=== PATIENT | female | born 1955 | race Caucasian/White ===

== ENCOUNTER 2019-03-06 04:31 | Inpatient (IN) ==
[2019-03-06] MEDS ORDERED: ASPIRIN PO ONE (04:50)
--- NOTE | 2019-03-06 04:55 | PROVIDER DOCUMENTATION ---
HPI-Chest Pain - General Chief Complaint: Chest Pain Stated Complaint: "HEART ATTACK" Time Seen by Provider: 03/06/19 04:33 Allergies/Adverse Reactions: Patient Allergies Allergy/AdvReac Type Severity Reaction Status Date / Time codeine Allergy ITCHING Verified 03/26/18 03:04 Home Medications: Home Medication List Medication Instructions Recorded Confirmed Last Taken Type Duloxetine [Cymbalta] 60 mg PO DAILY 07/30/13 03/06/19 09/18/17 09:00 History Tizanidine HCl [Zanaflex] 8 mg PO HS 12/09/15 03/06/19 09/19/17 02:00 History Ergocalciferol (Vitamin D2) 50,000 unit PO Q7D 09/19/17 03/06/19 10/30/17 History [Vitamin D2] Levothyroxine [Synthroid] 25 microgm PO DAILY@0700 09/19/17 03/06/19 09/18/17 09:00 History Alprazolam 1 mg PO BID 11/02/17 03/06/19 Unknown History Metformin [Glucophage] 500 mg PO TID CC 11/02/17 03/06/19 Unknown History - History of Present Illness-CP Nature of Presenting Problem: Patient is a 63 year old white female with history of orthostatic hypotension, chronic lower back pain, hypothyroidism, and depression who presents with 3/10 sharp bilateral neck pain and substernal chest pain- onset 30 minutes ago after getting up from sleep. Denies history of CAD. Followed by doctor in [place]. Review of Systems - Adult - REVIEW OF SYSTEMS - ADULT Constitutional: denies: chills, fever Eyes: reports: no symptoms reported Ears, Nose, Mouth & Throat: reports: no symptoms reported Cardiovascular: reports: chest pain Respiratory: denies: shortness of breath Gastrointestinal: denies: abdominal pain, hematemesis, rectal bleeding Genitourinary: denies: dysuria Musculoskeletal: reports: see HPI, back pain (chronic lower back pain) Integumentary: denies: rash Neurological: reports: no symptoms reported Psychiatric: reports: anxiety, depression Hematologic/Lymphatic: reports: no symptoms reported Allergic/Immunologic: reports: no symptoms reported All Other Systems: Reviewed and Negative Past History - Adult - PAST MEDICAL HISTORY-ADULT Review of Records: reports: Nursing Assessment Review Major Childhood Illnesses: reports: denies history Cardiovascular: reports: denies history Respiratory: reports: denies history Gastrointestinal: reports: denies history Obstetrical/Gynecological: reports: denies history Genitourinary: reports: denies history Musculoskeletal: reports: arthritis, fibromyalgia Neurological: reports: headaches/migraines Endocrine/Immune: reports: Diabetes, thyroid disorder Other Conditions: reports: denies history - PRIOR SURGERIES/PROCEDURES Surgical/Procedure History: reports: reviewed, not pertinent, appendectomy, cholecystectomy, hysterectomy, BTL - IMMUNIZATION STATUS Childhood Immunizations: See Nurse Assessment Flu Vaccine: See Nurse Assessment - FAMILY HISTORY Family History: reviewed, not pertinent Physical Exam-General - CONSTITUTIONAL General Appearance: alert, other (appears pale with generalized weakness) - EYES Eyes: other (clear) - HEAD, EARS, NOSE, MOUTH & THROAT HENMT: normocephalic/atraumatic, moist mucous membranes - NECK Neck: non-tender, full range of motion, supple - RESPIRATORY Respiratory: lungs clear - CARDIOVASCULAR Cardiovascular: regular rate, rhythm - GASTROINTESTINAL (ABDOMEN) Abdominal Exam: normal bowel sounds, non tender, soft - MUSCULOSKELETAL Back Exam: normal inspection, no CVA tenderness Extremity: normal range of motion, non-tender - SKIN Integumentary: warm - NEUROLOGIC Neurologic: grossly normal - PSYCHIATRIC Psych/Mental Status: oriented x 3, anxious Progress - PLAN OF CARE/RESULTS Progress/Plan/Lab Results: Vital Signs - 8 hr 03/06/19 04:33 03/06/19 04:43 03/06/19 04:51 Temperature 97.6 F Pulse Rate 71 57 L 55 L Respiratory Rate 18 17 15 Blood Pressure 68/45 92/61 110/57 O2 Sat by Pulse Oximetry 96 93 L 03/06/19 05:00 03/06/19 05:03 03/06/19 05:15 Temperature Pulse Rate 67 58 L 55 L Respiratory Rate 14 19 16 Blood Pressure 59/36 89/48 86/49 O2 Sat by Pulse Oximetry 96 94 L 95 03/06/19 05:29 03/06/19 05:45 Temperature Pulse Rate 61 57 L Respiratory Rate 14 16 Blood Pressure 89/49 84/44 O2 Sat by Pulse Oximetry 99 99 Laboratory Results - last 24 hr 03/06/19 03/06/19 03/06/19 04:47 04:55 04:55 WBC 11.33 H RBC 3.88 L Hgb 11.0 L Hct 34.9 L MCV 89.9 MCH 28.4 MCHC 31.5 L RDW Std Deviation 13.4 Plt Count 301 MPV 12.3 H Immature Gran % (Auto) 0.3 Neut % (Auto) 59.4 Lymph % (Auto) 24.4 Kleberg % (Auto) 7.4 Eos % (Auto) 6.7 Baso % (Auto) 1.8 H Immature Gran # (Auto) 0.03 Neut # (Auto) 6.74 H Lymph # (Auto) 2.76 Kleberg # (Auto) 0.84 H Eos # (Auto) 0.76 H Baso # (Auto) 0.20 D-Dimer, Quantitative 0.81 H Sodium Potassium Chloride Carbon Dioxide Anion Gap BUN Creatinine Estimated GFR/1.73 m2 BUN/Creatinine Ratio Glucose POC Glucose 223 H Calculated Osmolality Calcium Total Bilirubin AST ALT Alkaline Phosphatase Ziz-I-Oyssxkzgrjz Pept Total Protein Albumin Globulin Albumin/Globulin Ratio 03/06/19 03/06/19 04:55 04:55 WBC RBC Hgb Hct MCV MCH MCHC RDW Std Deviation Plt Count MPV Immature Gran % (Auto) Neut % (Auto) Lymph % (Auto) Kleberg % (Auto) Eos % (Auto) Baso % (Auto) Immature Gran # (Auto) Neut # (Auto) Lymph # (Auto) Kleberg # (Auto) Eos # (Auto) Baso # (Auto) D-Dimer, Quantitative Sodium 140 Potassium 4.0 Chloride 105 Carbon Dioxide 18 L Anion Gap 18 BUN 26 H Creatinine 1.5 H Estimated GFR/1.73 m2 35 BUN/Creatinine Ratio 17 Glucose 257 H POC Glucose Calculated Osmolality 293 Calcium 8.9 Total Bilirubin 0.30 AST 18 ALT 10 Alkaline Phosphatase 158 H Hoj-Y-Trboscgkagt Pept 357 H Total Protein 7.3 Albumin 4.2 Globulin 3.0 Albumin/Globulin Ratio 1.0 Orders Category Date Time Status Cardiac Monitoring DIRECTED Care 03/06/19 04:49 Active Misc. NRSG Communication Order DIRECTED Care 03/06/19 06:01 Active Saline Loc NOW Care 03/06/19 04:51 Active CHEST-PORTABLE [RAD] Stat Exams 03/06/19 04:50 Taken LUNG SCAN / VQ [NM] Stat Exams 03/06/19 05:54 Ordered BLOOD CULTURE [BLDCUL] Stat Lab 03/06/19 05:57 Uncollected BNP [PRO B-NATRIURETIC PEPTIDE] Stat Lab 03/06/19 04:55 Completed CBC WITH ELECTRONIC DIFF [HEME] Stat Lab 03/06/19 04:55 Completed CMP [COMPREHENSIVE METABOLIC PANEL] [CHEM] Stat Lab 03/06/19 04:55 Completed D-DIMER [COAG] Stat Lab 03/06/19 04:55 Completed OCCULT BLOOD SCREEN STOOL PL Stat Lab 03/06/19 06:02 Uncollected TROPONIN T HIGH SENSITIVITY Stat Lab 03/06/19 04:55 Received 0.9% Sodium Chloride Inj [Ns] 1,000 ml Med 03/06/19 05:09 Discontinued IV 999 mls/hr Aspirin Med 03/06/19 04:50 Discontinued 324 mg PO NOW ONE Hydrocortisone Sod Succinate [Solu-Cortef] Med 03/06/19 05:56 Discontinued 100 mg IV NOW ONE Oxygen Device Stat Oth 03/06/19 05:08 Active EKG [EKG] Stat Ther 03/06/19 04:37 Draft Result Diagrams: 03/06/19 04:55 03/06/19 04:55 - CONSULTS/PCP/HOSPITALIST Notification #1 *Consult/PCP/Hospitalist*: Dr Proctor Time Discussed: 08:22 Consult Disposition: Will see in ED, Admit - CHANGE OF SHIFT REPORT (ED Provider) 1 Report Given and Care Transferred to:: Dr. HENSON Time of Transfer: 07:00 Items Pending: Labs, Other (VQ scan, repeat cardiac enzymes) Departure - Departure Date of Disposition Decision: 03/06/19 Time of Disposition Decision: 08:21 DIAGNOSIS: Chest pain, Elevated d-dimer, UTI (urinary tract infection) Hypotension Qualifiers: Hypotension type: unspecified hypotension type Qualified Code(s): I95.9 - Hypotension, unspecified Disposition: ADMITTED INPATIENT 09 Certified Medical Emergency: Emergent Condition: Stable Referrals and Follow-Ups: None,PCP [NON-STAFF PROVIDER] - - Critical Care Note This patient required my direct & personal management of CC.: No Attestation - Physician/ NEENA Attestation Patient care was provided by Advanced Practice Provider:: No The physician spent face to face time with patient:: Yes Advanced Practice Provider documentation review:: Supervising physician onsite and consulted in the evaluation and care of this patient. The physician did have a face to face encounter with the patient.
[2019-03-06 05:06] LABS: BASO% 1.8 % (0.0-0.8); EOS# 0.76 X1000 (0.0-0.7); EOS% 6.7 % (0.0-10.0); HEMATOCRIT 34.9 % (37.0-47.0); IMM GRAN# 0.03 X1000 (0.0-0.04); IMM GRAN% 0.3 % (0.0-0.5); LYMPH# 2.76 X1000 (1.2-3.4); LYMPH% 24.4 % (20.5-51.1); MCH 28.4 PG (27-31); MCHC 31.5 g/dL (33-37); MCV 89.9 FL (81-99); MONO# 0.84 X1000 (0.11-0.59); MONO% 7.4 % (1.7-9.3); MPV 12.3 FL (7.4-10.4); NEUT# 6.74 X1000 (1.4-6.5); NEUT% 59.4 % (42.2-75.2); PLT 301 X1000 (130-400); RBC 3.88 XMIL (4.2-5.4); RDW 13.4 % (11.5-14.5); WBC 11.33 X1000 (4.8-10.8)
[2019-03-06] MEDS ORDERED: NS 1,000 ML IV ONE (05:09)
[2019-03-06 05:21] LABS: ALBUMIN 4.2 g/dL (3.5-5.0); CALCIUM 8.9 mg/dL (8.8-10.2); CREATININE 1.5 mg/dL (0.5-0.9); TOTAL BILIRUBIN 0.3 mg/dL (0.20-1.00); TOTAL PROTEIN 7.3 g/dL (6.3-8.3)
[2019-03-06] MEDS ORDERED: SOLU-CORTEF IV ONE (05:56)
--- NOTE | 2019-03-06 06:04 | EKG Report ---
Test Performed on : 03/06/2019 04:45:24 AM Test Reason : CP Blood Pressure : / mmHG Vent. Rate : 059 BPM Atrial Rate : 059 BPM P-R Int : 160 ms QRS Dur : 072 ms QT Int : 418 ms P-R-T Axes : 029 065 072 degrees QTc Int : 413 ms Sinus bradycardia. Otherwise normal ECG When compared with ECG of 02-NOV-2017 14:19, Vent. rate has decreased BY 30 BPM Unconfirmed Result
[2019-03-06 07:09] LABS: BILIRUBIN URINE NEGATIVE (NEGATIVE); BLOOD URINE NEGATIVE (NEGATIVE); COLOR YELLOW; GLUCOSE URINE NEGATIVE (NEGATIVE); KETONE URINE NEGATIVE (NEGATIVE); LEUKOCYTES URINE LARGE (NEGATIVE); NITRITE URINE NEGATIVE (NEGATIVE); PROTEIN URINE TRACE mg/dL (NEGATIVE); SP GRAVITY URINE 1.016; TURBIDITY URINE HAZY (CLEAR); UR EPITHELIAL CELLS <10 /HPF (<10); URINE BACTERIA 4+ /HPF; URINE RBC <10 /HPF (<10); URINE SOURCE CLEAN CATCH; URINE WBC TNTC /HPF (<10); UROBILINOGEN URINE 2 mg/dL (NORMAL)
--- NOTE | 2019-03-06 07:41 | Diag Imaging Result Doc PS360 ---
CHEST-PORTABLE - 03/06/2019 INDICATION: cp COMPARISON: 11/02/2017 FINDINGS: The lungs are normally expanded and clear. Heart size and mediastinal contours are normal. No pneumothorax or pleural effusion. IMPRESSION: Negative exam. Electronically signed by Scott Marrero 03/06/2019 7:39 AM
[2019-03-06] MEDS ORDERED: ROCEPHIN 1 GM in NS 50 ML IV ONE (08:21)
--- NOTE | 2019-03-06 09:00 | EKG Report ---
Test Performed on : 03/06/2019 08:52:26 AM Test Reason : repeat Blood Pressure : / mmHG Vent. Rate : 049 BPM Atrial Rate : 049 BPM P-R Int : 144 ms QRS Dur : 076 ms QT Int : 470 ms P-R-T Axes : 038 066 085 degrees QTc Int : 424 ms Sinus bradycardia. Otherwise normal ECG When compared with ECG of 06-MAR-2019 04:45, (Unconfirmed) No significant change was found Unconfirmed Result
[2019-03-06] MEDS ORDERED: TYLENOL PO PRN (09:06)
[2019-03-06] MEDS ORDERED: ZOFRAN IV PRN (09:06)
[2019-03-06] MEDS ORDERED: DIFLUCAN PO ONE (09:13)
[2019-03-06] MEDS ORDERED: DIFLUCAN ONE (09:15)
[2019-03-06] MEDS: NS 1,000 ML IV SCH (09:22)
--- NOTE | 2019-03-06 09:29 | ED EKG INTERP ---
This chart was entered by Brunilda Quintanilla Scribe, acting as scribe for Ameena Garcia MD. EKG Interpretation - EKG Time of EKG reading by physician:: 08:52 EKG Read and Signed by:: Ameena Garcia EKG Interpretation (*Must complete 3 of following elements*): Abnormal Rate: 49 Rhythm: sinus bradycardia Elim: normal UT Interval: normal Comments: otherwise normal ECG Attestation - Physician/ NEENA Attestation Patient care was provided by Advanced Practice Provider:: No The physician spent face to face time with patient:: Yes Advanced Practice Provider documentation review:: Supervising physician onsite and consulted in the evaluation and care of this patient. The physician did have a face to face encounter with the patient. This chart was documented by the indicated scribe, (Brunilda Quintanilla Scribe) and accurately reflects the services I performed and decisions made by me, Ameena Garcia MD, as attested by the provider's signature.
[2019-03-06 09:34] LABS: FREE T4 1.59 ng/dL (0.93-1.70); TSH 2.65 uIUmL (0.27-4.20)
--- NOTE | 2019-03-06 12:56 | Diag Imaging Result Doc PS360 ---
LUNG SCAN / VQ - 03/06/2019 INDICATION: sob,cp TECHNIQUE: 37.1 mCi of DTPA was used for inhalation. 5.2 mCi of MAA was used for injection. COMPARISON: Chest x-ray 03/06/2019 FINDINGS: There is normal localization pattern of both radiotracer's. There is no pulmonary perfusion defect. IMPRESSION: Negative for pulmonary embolism. Electronically signed by Scott Marrero 03/06/2019 12:57 PM
--- NOTE | 2019-03-06 15:35 | HISTORY AND PHYSICAL ---
PRIMARY CARE PROVIDER: Dr. Slater. CHIEF COMPLAINT: Dizziness, urinary burning. HISTORY OF PRESENT ILLNESS: Ms. Kandy Cabral is a 63-year-old female who presented last night after attempting to get up to go the bathroom, feeling dizzy, as if she was going to pass out. Had some nausea, weakness, legs were wobbly, a little chest pressure with it, so she presented to the emergency department with these complaints. She does have burning when she has urination. Otherwise no other urinary symptoms. She was found to be hypotensive, primarily orthostatic, and so she will be treated for the urinary tract infection. PAST MEDICAL HISTORY: 1. Diabetes mellitus type 2 with a hemoglobin A1c of 8.0 this admission. 2. POTS syndrome. 3. Fibromyalgia. 4. Migraines. 5. Nephrolithiasis. 6. Angiomyolipoma of the left kidney. 7. Sjogren syndrome. SURGICAL HISTORY: 1. Cholecystectomy. 2. Cystocele. 3. Hysterectomy. 4. Back surgery. 5. Bilateral carpal tunnel. SOCIAL HISTORY: Denies tobacco. Drinks alcohol only on special occasions or a holiday. She is , has children. 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 FAMILY HISTORY: Father at 90 with heart problems that had started in his 20s. Mother had a DVT at 96. ALLERGIES: Codeine makes her nauseated. HOME MEDICATIONS: 1. Xanax 1 mg p.o. twice a day. 2. Cymbalta 60 mg p.o. daily. 3. Metformin 500 mg p.o. t.i.d. 4. Pregabalin 75 mg p.o. twice daily. 5. Protonix 40 mg p.o. daily. 6. Synthroid 25 mcg p.o. daily. 7. Trulicity 0.75 mg subcutaneous as directed. 8. Vitamin D2 39715 units p.o. daily. 9. Zanaflex 8 mg p.o. nightly. REVIEW OF SYSTEMS: Fourteen point review of systems are complete and all were negative except those mentioned above in HPI. She denied any fevers or other urinary symptoms. PHYSICAL EXAMINATION: VITAL SIGNS: Temperature 98.2 degrees, heart rate 53, respiratory rate 18, blood pressure 129/100, O2 saturation 100% on room air. GENERAL: Ms. Kandy Cabral is a 63-year-old female. She is in no acute distress. She is able answer questions appropriately. HEENT: Atraumatic, normocephalic. Pupils equal, round, reactive to light. Extraocular movements intact. Mucous membranes are dry. NECK: Trachea midline. CARDIOVASCULAR: S1, S2. Bradycardic rate and rhythm. No rubs, gallops, or murmurs. No lower extremity edema. There are +2 dorsalis and radial pulses. Negative for carotid bruits or JVD. GI: Soft, nontender, nondistended. Positive bowel sounds x4. EXTREMITIES: Moves all extremities equally with range of motion intact. NEUROLOGIC: A and O x3. Follows commands. Sensory is intact. SKIN: Warm, dry, intact but pale. LABORATORY DATA: White blood cells 11,000, hemoglobin 11, hematocrit 34, platelet count 301,000. D-dimer 0.81. Sodium 140, potassium 4.0, BUN 26, creatinine is 1.5, glucose 257, hemoglobin A1c is 8.0, calcium 8.9, bilirubin 0.30, AST 18, ALT 10. Troponin x2 sets negative at 16 and 14. ProBNP is 357. Albumin is 4.2. Triglycerides 127, cholesterol 177, LDL is 126, HDL 41. TSH 2.65, free T4 is 1.59. Urinalysis: Trace protein, 2 urobilinogen, large leukocytes, too numerous to count white blood cells, and 4+ bacteria. Blood culture pending and there will be a urine culture pending. IMAGING: Chest x-ray, negative exam. There has been 2 EKGs. The first one sinus bradycardia, rate 59. The second is also sinus bradycardia, rate was 49. ASSESSMENT AND PLAN: 1. Urinary tract infection with signs and symptoms of sepsis with possible septic shock, but blood pressure has improved with fluid hydration. We will continue with Rocephin IV daily until culture and sensitivities can come back. 2. Acute kidney injury, likely secondary to dehydration. Creatinine is 1.5, although she looks like she could have a baseline of chronic kidney disease. She has ranged anywhere from 0.9 to as high as 1.6 from 2017 until now, but mostly it has been over 1. She will have IV fluid hydration. We will recheck her kidney function in the morning. 3. Orthostatic hypotension, improved with IV fluid hydration. 4. Diabetes mellitus type 2 with hyperglycemia and a hemoglobin A1c of 8.0. Will do a diabetic diet, pattern blood glucoses, and sliding scale insulin. 5. Elevated D-dimer with initial complaint of chest pain or chest pressure. Given the elevated creatinine, a V/Q scan has been ordered. 6. Postural orthostatic tachycardia syndrome, fibromyalgia, migraines. Home medications have been initiated. Dictated by FLOYD Dougherty for Frantz Proctor MD cc: FLOYD Dougherty MD
[2019-03-06] MEDS: XANAX PO SCH (20:41)
[2019-03-06] MEDS ORDERED: ZANAFLEX PO SCH (21:00)
--- NOTE | 2019-03-06 21:54 | HISTORY AND PHYSICAL ---
ADDENDUM: Patient seen and examined by myself. Full note dictated discussed with nurse practitioner. The patient presented to the hospital stating that she was having chest pain and a heart attack. She notes that she does have a history of orthostatic hypotension. She states that her pain was 3/10 in intensity. She was lightheaded and dizzy when she stood. Blood pressures in the ER were as low as 68/45, currently 110/54. We are going to admit her to the hospital, IV fluids, and we will follow. She does have an elevated D-dimer. If her creatinine is better, hopefully we can do a CT scan instead of a V/Q. cc: Frantz Proctor MD
[2019-03-07] MEDS: NS 1,000 ML IV SCH (04:41)
[2019-03-07 06:57] LABS: BASO# 0.15 X1000 (0.0-0.2); BASO% 1.6 % (0.0-0.8); EOS# 0.35 X1000 (0.0-0.7); EOS% 3.6 % (0.0-10.0); HEMATOCRIT 31.9 % (37.0-47.0); IMM GRAN# 0.02 X1000 (0.0-0.04); IMM GRAN% 0.2 % (0.0-0.5); LYMPH# 4.44 X1000 (1.2-3.4); LYMPH% 46.2 % (20.5-51.1); MCH 28.4 PG (27-31); MCHC 31.3 g/dL (33-37); MCV 90.6 FL (81-99); MONO# 0.96 X1000 (0.11-0.59); MPV 13.1 FL (7.4-10.4); NEUT# 3.69 X1000 (1.4-6.5); NEUT% 38.4 % (42.2-75.2); PLT 265 X1000 (130-400); RBC 3.52 XMIL (4.2-5.4); RDW 13.5 % (11.5-14.5); WBC 9.61 X1000 (4.8-10.8)
[2019-03-07] MEDS ORDERED: SYNTHROID PO SCH (07:00)
[2019-03-07 07:13] LABS: ALBUMIN 3.5 g/dL (3.5-5.0); CALCIUM 8.6 mg/dL (8.8-10.2); CREATININE 1.2 mg/dL (0.5-0.9); MAGNESIUM 1.4 mg/dL (1.5-2.7); POTASSIUM 3.6 mmol/L (3.5-5.1); TOTAL BILIRUBIN 0.3 mg/dL (0.20-1.00); TOTAL PROTEIN 6.5 g/dL (6.3-8.3)
[2019-03-07] MEDS ORDERED: ROCEPHIN 1 GM in NS 50 ML IV SCH (08:00)
[2019-03-07] MEDS ORDERED: MAGNESIUM SULFATE 2 GM/S.W.I. 2 GM/50 ML IVPB IV ONE (08:24)
[2019-03-07] MEDS ORDERED: NS 1,000 ML IV SCH (08:25)
[2019-03-07] MEDS: XANAX PO SCH (08:38)
[2019-03-07] MEDS ORDERED: CYMBALTA PO SCH (09:00)
[2019-03-07] MEDS ORDERED: LYRICA PO SCH (09:00)
--- NOTE | 2019-03-07 09:50 | Vascular Study Report ---
EXAM: Venous U/S Bilateral Legs HISTORY: d dimer TECHNIQUE: Bilateral lower extremity venous Doppler ultrasound COMPARISON: None. FINDINGS: Right: There is good flow and compressibility in the veins of the right lower extremity. No thrombus. Left: There is good flow and compressibility in the veins of the left lower extremity. No thrombus. IMPRESSION: No deep venous thrombosis within either lower extremity. Electronically signed by Bk Reynolds 03/07/2019 9:47 AM
[2019-03-07 11:27] VITALS: BP 124/69
[2019-03-07] MEDS ORDERED: GLUCOPHAGE PO SCH (12:00)
--- NOTE | 2019-03-08 14:23 | DISCHARGE SUMMARY ---
ADMISSION DATE: 03/06/2019 DISCHARGE DATE: 03/07/2019 ADMISSION DIAGNOSES: 1. Urinary tract infection with signs and symptoms of sepsis and possible septic shock. 2. Acute kidney injury likely secondary to dehydration. 3. Orthostatic hypotension. 4. Diabetes mellitus type 2 with hyperglycemia. 5. Elevated D-dimer with initial complaint of chest pain or chest pressure. DQ scan was negative for pulmonary embolus. 6. Postural orthostatic tachycardia syndrome, fibromyalgia, migraines. Home medications have been initiated. DISCHARGE DIAGNOSES: 1. Urinary tract infection with signs and symptoms of sepsis, possible septic shock. 2. Acute kidney injury secondary to dehydration, improved, resolved. 3. Orthostatic hypotension with history of postural orthostatic tachycardia syndrome, improved with IV fluid hydration. 4. Diabetes mellitus type 2 with hyperglycemia. 5. Elevated D-dimer with chest pain complaints. That was negative. CONSULTATIONS: None. SURGERIES AND PROCEDURES: None. HOSPITAL COURSE: Ms. Kandy Cabral is a 63-year-old female with a medical history of POTS, now comes in with dizziness and chest pressure and feeling like she was going to pass out. There was some elevation in the D-dimer, but the V/Q scan was negative. Cardiac enzymes were negative. She did show signs of urinary tract infection, so that was treated and IV fluids was given for the hypotension, which resolved it. DISCHARGE VITAL SIGNS: Temperature 97.9 degrees, heart rate 91, respiratory rate 18, blood pressure 124/69, O2 saturation 99% on room air. Orthostatic vital signs are stable on discharge. Supine heart rate 72, blood pressure 135/61, sitting heart rate 74, blood pressure 134/66, standing heart rate 88, blood pressure 124/69. DISCHARGE LABORATORY DATA: White blood cells 9000, hemoglobin 10, hematocrit 31, platelet count 265,000. Sodium 141, potassium 3.6, BUN 20, creatinine is 1.2, glucose 121. Hemoglobin A1c was 8.0, calcium 8.6, magnesium 1.4, bilirubin 0.30, AST 12, ALT 7, albumin 3.5. Urine culture came back negative, but she had 4+ bacteria in the urine. PERTINENT IMAGING: Chest x-ray negative exam, lung V/Q scan negative for PE. Lower extremity ultrasound, no DVT. EKG sinus bradycardia, rate 49, QTc was 424 and the lowest her blood pressure was while she was in the hospital was 59/36. DISCHARGE MEDICATIONS: 1. Xanax 1 mg p.o. twice daily. 2. Cymbalta 60 mg p.o. daily. 3. Doxepin 75 mg p.o. nightly. 4. Metformin 500 mg p.o. t.i.d. 5. Pregabalin 75 mg p.o. twice daily. 6. Protonix 40 mg p.o. daily. 7. Synthroid 25 mcg p.o. daily. 8. Trulicity 0.75 mg subcutaneous as directed. 9. Vitamin D2 46401 units p.o. daily. 10. Zanaflex 8 mg p.o. nightly. PHYSICIAN FOLLOWUPS: None. DISCHARGE ACTIVITY: As tolerated. DISCHARGE DIET: Diabetic diet. DISCHARGE INSTRUCTIONS: If your condition changes, contact physician and/or return to the emergency department. Changes may include, but not limited to shortness of breath, increased fatigue, excessive bleeding, unexplained weight loss or gain, unmanageable pain, signs or symptoms of infection. DISCHARGE DISPOSITION: Home. Dictated by FLOYD Dougherty for Frantz Proctor MD cc: FLOYD Dougherty MD
--- NOTE | 2019-03-08 19:03 | DISCHARGE SUMMARY ---
ADMISSION DATE: 03/06/2019 DISCHARGE DATE: 03/07/2019 ADDENDUM: Patient seen and examined by myself. Full note dictated and discussed with nurse practitioner. On discharge, patient is awake, alert, in no current respiratory distress. Her blood pressures actually are quite high for her at 110s and 120s. She has no current issues. No complaints. She denies any weakness, lightheadedness, and therefore she will be discharged home. cc: Frantz Proctor MD
== END 2019-03-07 14:35 | disposition home or self-care (01) | DRG 871 ==
LOC: P.ED 04:31 → P.MEDSURG 09:23
PROVIDERS: ATTEND Family Medicine